=== PATIENT | female | born 1955 | race Caucasian/White ===

== ENCOUNTER 2017-01-23 15:35 | Emergency (ER) | payer OTHER ==
--- NOTE | 2017-01-23 16:41 | DIAGNOSTIC IMAGING REPORT ---
PROCEDURE: XR CHEST 2 VIEW INDICATION: COUGH TECHNIQUE: PA and lateral view. COMPARISON: Chest x-ray 08/27/2012. FINDINGS: Lungs are clear. Cardiovascular structures are normal. Bony thorax is unremarkable. No significant interval change. IMPRESSION: 1. Negative chest.
--- NOTE | 2017-01-23 17:51 | ED CLINICAL REPORT ---
Clinical Report - Physicians/Mid Levels [facility] [address] [place] [address] 01/23/2017 15:36 Patient: SPRING YEE Time Seen: 1555; initial patient contact. Arrived- By private vehicle. Historian- patient. HISTORY OF PRESENT ILLNESS Chief Complaint: COUGH, SORE THROAT, SINUS PAIN, FEVER and CHILLS. This started today and is still present. It is not gone now. It was gradual in onset. Not constant. The illness is described as moderate. The patient has had sputum production, a cough, a sore throat, nasal congestion and fever. She has had chills and muscle aches. (post tussive emesis). Additional history - No known contact with a sick individual. No recent travel. Similar symptoms previously: None. Recent medical care: Not recently seen/assessed. REVIEW OF SYSTEMS No skin rash. All systems otherwise negative, except as recorded above. PAST HISTORY See nurses notes. SOCIAL HISTORY Former smoker. Alcohol use. History of occasional drug use: marijuana. No recent travel. Is a local resident. ADDITIONAL NOTES The nursing notes have been reviewed. PHYSICAL EXAM Vital Signs: 01/23/2017 15:47 BP: 153/87. HR: 120. RR: 20. O2 saturation: 98%. Temp: 99.5 F. Pain level now: 0/10. Oxygen saturation normal. Appearance: Alert. No acute distress. Eyes: Pupils equal, round and reactive to light. Eyes normal inspection. ENT: Ears normal. Nose normal. Pharynx normal. Uvula midline. Neck: Normal inspection. Neck supple. No meningeal signs. CVS: Tachycardia. Normal heart rate and rhythm. Heart sounds normal. Pulses normal. Respiratory: No respiratory distress. Breath sounds normal. No rales, rhonchi, wheezes or stridor. Abdomen: Soft and nontender. No organomegaly. Skin: Skin warm and dry. Normal skin color. No rash. Normal skin turgor. Extremities: Extremities exhibit normal ROM. No lower extremity edema. LABS, X-RAYS, AND EKG Chest X-ray: (PROCEDURE: XR CHEST 2 VIEW INDICATION: COUGH TECHNIQUE: PA and lateral view. COMPARISON: Chest x-ray 08/27/2012. FINDINGS: Lungs are clear. Cardiovascular structures are normal. Bony thorax is unremarkable. No significant interval change. IMPRESSION: 1. Negative chest.). The X-rays were independently viewed by me, interpreted by the radiologist and discussed with the radiologist. PROGRESS AND PROCEDURES Course of Care: The patient is a 61 yo female with s/sx of URI vs pneumonia. Patient agreeable to treatment and plan. Patient non-toxic. CXR negative. Patient readied for discharge. HR noted to be elevated. Patient states she feels fine and does not want to stay to be monitored longer. States she would like to get OTC remedies to help with her symptoms. Discussed with patient her work up in the emergency department including diagnosis, home care, follow up, and return precautions. All questions answered. patient expressed understanding of these instructions and was agreeable to them. Disposition: Discharged. Condition: good. CLINICAL IMPRESSION 01/23/2017 15:47 BP: 153/87. HR: 120. RR: 20. O2 saturation: 98%. Temp: 99.5 F. Pain level now: 0/10. Hypertensive. Oxygen saturation normal. Acute viral bronchitis. INSTRUCTIONS Warnings: GENERAL WARNINGS: Return or contact your physician immediately if your condition worsens or changes unexpectedly, if not improving as expected, or if other problems arise. Specifically return if pain, vomiting, bleeding, breathing difficulty or fever. Your Current Medications: CONTINUE TAKING THE FOLLOWING MEDICATIONS: None*. Prescription Medications: Zofran ODT 4 mg: take 1 orally every 8 hours as needed for nausea and vomiting. Dispense ten (10). No refill. Substitution is permissible. Phenergan w/ Codeine 10mg / 6.25mg per 5 mL: take 1-2 teaspoons every 6 hours as needed for pain or cough. Dispense sixty (60) mL. No refill. Substitution is permissible. Follow-up: Return to the emergency department as needed. Follow up with your doctor in three days. Reason for referral: recheck today's concerns. Screening today revealed the patient's blood pressure to be in the hypertensive range. The patient should follow up with a primary care provider for blood pressure management. Understanding of the discharge instructions verbalized by patient. (Electronically signed by Aurelio Cabrales Dr. 07/04/2017 19:19)
--- NOTE | 2017-01-23 17:51 | ED NURSING NOTES ---
Clinical Report - Nurses [facility] [place] [address] 01/23/2017 15:36 Patient: SPRING YEE TRIAGE Acuity: LEVEL 3. Chief Complaint: COUGH. Alert. No acute distress. SEPSIS SCREEN: Sepsis Screen. Negative (no infection suspected/documented). --15:54 Catalina Marrufo R.N. 15:47 01/23/17. BP: 153/87. HR: 120. RR: 20. O2 saturation: 98%. Temp: 99.5 F (oral). Pain level now: 0/10. --15:54 Catalina Marrufo R.N. Weight: 69.8 kg stated. Height/Length: 65 inches Per Patient. BMI: 25.6. --15:51 Catalina Marrufo R.N. Medications None. --15:50 Catalina Marrufo R.N. Medication/allergy information source: the patient. --15:54 Catalina Marrufo R.N. Allergies No Known Drug Allergy. --15:50 Catalina Marrufo R.N. History Arrived by private vehicle. Historian: patient. Accompanied by spouse. Primary physician (Alex Thomas). Onset. (5 days ago). She has had chest congestion and chills. Reports muscle aches. 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 PAST MEDICAL HX: No known contact with a sick individual. SOCIAL HX: Former smoker, end date 2012. Regular alcohol use. History of heavy drug use: marijuana. FALL RISK ASSESSMENT: Fall risk assessment completed. No fall risk identified. NUTRITIONAL RISK ASSESSMENT: The nutritional risk assessment revealed no deficiencies. FUNCTIONAL ASSESSMENT: Functional assessment: no impairments noted. LEARNING NEEDS ASSESSMENT: The learning needs assessment revealed no barriers. SKIN INTEGRITY ASSESSMENT: Skin integrity risk assessment completed. No skin integrity risk identified. --15:54 Catalina Marrufo R.N. PROBLEMS: Viral Disease. Vomiting. Immunizations. URI. Diverticulitis. Costochondritis. Fibromyalgia. --15:50 Catalina Marrufo R.N. ADDITIONAL SURGERIES: Lumpectomy of breast. --15:51 Catalina Marrufo R.N. Assessment GENERAL / NEURO / PSYCH: Alert. Oriented X 4. Appears in no acute distress. Patient appears calm and cooperative. RESPIRATORY: Respirations not labored. CVS: Capillary refill less than 2 seconds. GI / : Abdomen soft. SKIN: Mucous membranes are pink. Skin is warm and dry. --15:54 Catalina Marrufo R.N. Interventions ID band on patient. To treatment room. --15:54 Catalina Marrufo R.N. PHYSICAL ASSESSMENT 15:54 01/23/17. Ambulatory to room. GENERAL / NEURO / PSYCH: Alert. Oriented X 4. Appears in no acute distress. HEENT: Pupils equal, round and reactive to light. Muffled voice. Mucous membranes are pink. RESPIRATORY: Respirations not labored. CVS: Capillary refill less than 2 seconds. SKIN: Skin is warm and dry. Normal skin turgor. --15:54 Catalina Marrufo R.N. NURSING PROGRESS NOTES 15:54 01/23/17. Patient gowned. Two patient identifiers checked. Call light placed in reach. Side rails up x 1. Bed placed in lowest position. Brakes of bed on. Patient ready for evaluation- chart flagged and ED physician notified. --15:54 Catalina Marrufo R.N. 16:18 01/23/2017 PHENERGAN-CODEINE (Promethazine-Codeine) PO 10 mL given. Allergies verified and confirmed 5 rights. --16:18 Catalina Marrufo R.N. 16:18 01/23/2017 Zofran ODT (Ondansetron) PO 4 mg given. Allergies verified and confirmed 5 rights. --16:18 Catalina Marrufo R.N. 16:23 01/23/17. Patient transported to radiology by stretcher with tech. --16:23 Catalina Marrufo R.N. 17:37 01/23/17. ( Pt ambulated to BR..). --17:37 Catalina Marrufo R.N. 17:37 01/23/17. The patient reports no complaints and she is calm and resting quietly. Overall patient status is improved- she states feels better. --17:37 Catalina Marrufo R.N. DISPOSITION / DISCHARGE Departure time: 18:00 Jan 23 2017. Condition at departure: improved and stable. No learning barriers present. Discharge instructions provided and reviewed with the patient. Patient verbalized understanding. Written instructions provided in Canadian. The patient was discharged by the physician. She was discharged home and accompanied by spouse. She left the Emergency Department ambulatory and via private vehicle. Spouse driving. --18:34 Catalina Marrufo R.N. 18:33 01/23/17. BP: 126/78. HR: 120. HR. ED physician notified. RR: 16. O2 saturation: 99% on room air. Temp: 100.2 F. ED physician notified. Pain level now: 11/01. --18:34 Catalina Marrufo R.N. Locked/Released at 01/23/2017 18:34 by Catalina Marrufo R.N.
--- NOTE | 2017-01-23 17:51 | ED ORDER SUMMARY ---
..... Patient: SPRING YEE OrderSheet [facility] VisitID: [id number] [place] [address] 61y, F Registration Date/Time: 01/23/2017 ORDER SHEET Weight: 69.8 kg (stated) Allergies: No Known Drug Allergy GENERAL ORDERS: Chest 2V Urgent (16:12 01/23/2017 Areli [place]) (Ack 16:20 OHernandez) (16:30 MWinterer R.N.) MEDICATION ORDERS: Zofran ODT PO 4 mg (NOW) (16:12 01/23/2017 Areli [place]) (Ack 16:13 MWinterer R.N.) (16:18 MWinterer R.N.) Phenergan-Codeine PO 10 mL (HIGH ALERT MEDICATION, NOW) (16:12 01/23/2017 Areli [place]) (Ack 16:13 MWinterer R.N.) (16:18 MWinterer R.N.) IV FLUIDS: ORDER SHEET NOTES: [Electronically signed by Catalina Marrufo R.N. (18:34 01/23/2017)] [Electronically signed by Aurelio Cabrales Dr. (19:19 01/25/2017)] [Electronically locked/signed by Catalina Marrufo R.N. (18:34 01/23/2017)]
--- NOTE | 2017-01-23 17:51 | ED ORDER SUMMARY ---
..... Patient: SPRING YEE OrderSheet [facility] VisitID: [id number] [place] [address] 61y, F Registration Date/Time: 01/23/2017 ORDER SHEET Weight: 69.8 kg (stated) Allergies: No Known Drug Allergy GENERAL ORDERS: Chest 2V Urgent (16:12 01/23/2017 Areli [place]) (Ack 16:20 OHernandez) (16:30 MWinterer R.N.) MEDICATION ORDERS: Zofran ODT PO 4 mg (NOW) (16:12 01/23/2017 Areli [place]) (Ack 16:13 MWinterer R.N.) (16:18 MWinterer R.N.) Phenergan-Codeine PO 10 mL (HIGH ALERT MEDICATION, NOW) (16:12 01/23/2017 Areli [place]) (Ack 16:13 MWinterer R.N.) (16:18 MWinterer R.N.) IV FLUIDS: ORDER SHEET NOTES: [Electronically signed by Catalina Marrufo R.N. (18:34 01/23/2017)] [Electronically signed by Aurelio Cabrales Dr. (19:19 01/25/2017)] [Electronically locked/signed by Catalina Marrufo R.N. (18:34 01/23/2017)]
--- NOTE | 2017-01-23 17:51 | ED NURSING NOTES ---
Clinical Report - Nurses [facility] [place] [address] 01/23/2017 15:36 Patient: SPRING YEE TRIAGE Acuity: LEVEL 3. Chief Complaint: COUGH. Alert. No acute distress. SEPSIS SCREEN: Sepsis Screen. Negative (no infection suspected/documented). --15:54 Catalina Marrufo R.N. 15:47 01/23/17. BP: 153/87. HR: 120. RR: 20. O2 saturation: 98%. Temp: 99.5 F (oral). Pain level now: 0/10. --15:54 Catalina Marrufo R.N. Weight: 69.8 kg stated. Height/Length: 65 inches Per Patient. BMI: 25.6. --15:51 Catalina Marrufo R.N. Medications None. --15:50 Catalina Marrufo R.N. Medication/allergy information source: the patient. --15:54 Catalina Marrufo R.N. Allergies No Known Drug Allergy. --15:50 Catalina Marrufo R.N. History Arrived by private vehicle. Historian: patient. Accompanied by spouse. Primary physician (Alex Thomas). Onset. (5 days ago). She has had chest congestion and chills. Reports muscle aches. 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 PAST MEDICAL HX: No known contact with a sick individual. SOCIAL HX: Former smoker, end date 2012. Regular alcohol use. History of heavy drug use: marijuana. FALL RISK ASSESSMENT: Fall risk assessment completed. No fall risk identified. NUTRITIONAL RISK ASSESSMENT: The nutritional risk assessment revealed no deficiencies. FUNCTIONAL ASSESSMENT: Functional assessment: no impairments noted. LEARNING NEEDS ASSESSMENT: The learning needs assessment revealed no barriers. SKIN INTEGRITY ASSESSMENT: Skin integrity risk assessment completed. No skin integrity risk identified. --15:54 Catalina Marrufo R.N. PROBLEMS: Viral Disease. Vomiting. Immunizations. URI. Diverticulitis. Costochondritis. Fibromyalgia. --15:50 Catalina Marrufo R.N. ADDITIONAL SURGERIES: Lumpectomy of breast. --15:51 Catalina Marrufo R.N. Assessment GENERAL / NEURO / PSYCH: Alert. Oriented X 4. Appears in no acute distress. Patient appears calm and cooperative. RESPIRATORY: Respirations not labored. CVS: Capillary refill less than 2 seconds. GI / : Abdomen soft. SKIN: Mucous membranes are pink. Skin is warm and dry. --15:54 Catalina Marrufo R.N. Interventions ID band on patient. To treatment room. --15:54 Catalina Marrufo R.N. PHYSICAL ASSESSMENT 15:54 01/23/17. Ambulatory to room. GENERAL / NEURO / PSYCH: Alert. Oriented X 4. Appears in no acute distress. HEENT: Pupils equal, round and reactive to light. Muffled voice. Mucous membranes are pink. RESPIRATORY: Respirations not labored. CVS: Capillary refill less than 2 seconds. SKIN: Skin is warm and dry. Normal skin turgor. --15:54 Catalina Marrufo R.N. NURSING PROGRESS NOTES 15:54 01/23/17. Patient gowned. Two patient identifiers checked. Call light placed in reach. Side rails up x 1. Bed placed in lowest position. Brakes of bed on. Patient ready for evaluation- chart flagged and ED physician notified. --15:54 Catalina Marrufo R.N. 16:18 01/23/2017 PHENERGAN-CODEINE (Promethazine-Codeine) PO 10 mL given. Allergies verified and confirmed 5 rights. --16:18 Catalina Marrufo R.N. 16:18 01/23/2017 Zofran ODT (Ondansetron) PO 4 mg given. Allergies verified and confirmed 5 rights. --16:18 Catalina Marrufo R.N. 16:23 01/23/17. Patient transported to radiology by stretcher with tech. --16:23 Catalina Marrufo R.N. 17:37 01/23/17. ( Pt ambulated to BR..). --17:37 Catalina Marrufo R.N. 17:37 01/23/17. The patient reports no complaints and she is calm and resting quietly. Overall patient status is improved- she states feels better. --17:37 Catalina Marrufo R.N. DISPOSITION / DISCHARGE Departure time: 18:00 Jan 23 2017. Condition at departure: improved and stable. No learning barriers present. Discharge instructions provided and reviewed with the patient. Patient verbalized understanding. Written instructions provided in [place]ian. The patient was discharged by the physician. She was discharged home and accompanied by spouse. She left the Emergency Department ambulatory and via private vehicle. Spouse driving. --18:34 Catalina Marrufo R.N. 18:33 01/23/17. BP: 126/78. HR: 120. HR. ED physician notified. RR: 16. O2 saturation: 99% on room air. Temp: 100.2 F. ED physician notified. Pain level now: 11/01. --18:34 Catalina Marrufo R.N. Locked/Released at 01/23/2017 18:34 by Catalina Marrufo R.N.
--- NOTE | 2017-01-25 19:19 | ED DISCHARGE INSTRUCTIONS ---
Patient: SPRING YEE General Instructions [facility] VisitID: [id number] [place] [address] 61y, F Registration Date/Time: 01/23/2017 01/23/2017 15:47 BP: 153/87. HR: 120. RR: 20. O2 saturation: 98%. Temp: 99.5 F. Pain level now: 0/10. Hypertensive. Oxygen saturation normal. Acute viral bronchitis. INSTRUCTIONS Warnings: GENERAL WARNINGS: Return or contact your physician immediately if your condition worsens or changes unexpectedly, if not improving as expected, or if other problems arise. Specifically return if pain, vomiting, bleeding, breathing difficulty or fever. Your Current Medications: CONTINUE TAKING THE FOLLOWING MEDICATIONS: None*. Prescription Medications: Zofran ODT 4 mg: take 1 orally every 8 hours as needed for nausea and vomiting. Dispense ten (10). No refill. Substitution is permissible. Phenergan w/ Codeine 10mg / 6.25mg per 5 mL: take 1-2 teaspoons every 6 hours as needed for pain or cough. Dispense sixty (60) mL. No refill. Substitution is permissible. Follow-up: Return to the emergency department as needed. Follow up with your doctor in three days. Reason for referral: recheck today's concerns. Screening today revealed the patient's blood pressure to be in the hypertensive range. The patient should follow up with a primary care provider for blood pressure management. Understanding of the discharge instructions verbalized by patient. ADDITIONAL INFORMATION Bronchitis, Viral (Adult: No Abx) You have a viral bronchitis. This illness is contagious during the first few days and is spread through the air by coughing and sneezing, or by direct contact (touching the sick person and then touching your own eyes, nose, or mouth). Most viral illnesses resolve within 10-14 days with rest and simple home remedies, although they may sometimes last for several weeks. Antibiotics will not kill a virus and are generally not prescribed for this condition. Home Care: If symptoms are severe, rest at home for the first 2-3 days. When resuming activity, don't let yourself become overly tired. Do not smoke and avoid the smoke of others. You may use acetaminophen (Tylenol) or ibuprofen (Motrin, Advil) to control fever or pain, unless another pain medicine was prescribed. [NOTE: If you have chronic liver or kidney disease or ever had a stomach ulcer or GI bleeding, talk with your doctor before using these medicines.] (Aspirin should never be used in anyone under 18 years of age who is ill with a fever. It may cause severe liver damage.) Your appetite may be poor so a light diet is fine. Avoid dehydration by drinking 6-8 glasses of fluids per day (water, sport drinks such as Gatorade, juices, tea, soup, etc.). Extra fluids will help loosen secretions in the nose and lung. Vzxh-xsi-lfistpu cold medicines will not shorten the length of the illness, but may be helpful for cough (Robitussin DM), sore throat (Chloraseptic lozenges or spray), nasal and sinus congestion (Actifed or Sudafed). [NOTE: Do not use decongestants if you have high blood pressure.] Follow Up with your doctor or as directed by our staff if you are not improving over the next week. NOTE: If you are age 65 or older, or if you have chronic asthma or COPD, we recommend a PNEUMOCOCCAL VACCINATION every five years and a yearly INFLUENZAVACCINATION (FLU-SHOT) every . Ask your doctor about this. If you had an X-ray, a radiologist will review it. You will be notified of any new findings that may affect your care.] Get Prompt Medical Attention if any of the following occur: Fever over 100.4F (38.0C) for more than three days Trouble breathing, wheezing or pain with breathing Coughing up blood or increased amounts of colored sputum Weakness, drowsiness, headache, facial pain, ear pain or a stiff neck Ondansetron Oral disintegrating tablet What is this medicine? ONDANSETRON (on MELLO se [place]) is used to treat nausea and vomiting caused by chemotherapy. It is also used to prevent or treat nausea and vomiting after surgery. How should I use this medicine? These tablets are made to dissolve in the mouth. Do not try to push the tablet through the foil backing. With dry hands, peel away the foil backing and gently remove the tablet. Place the tablet in the mouth and allow it to dissolve, then swallow. While you may take these tablets with water, it is not necessary to do so. Talk to your brush holder inspector regarding the use of this medicine in children. Special care may be needed. What side effects may I notice from receiving this medicine? Side effects that you should report to your doctor or health pediatric critical care nurse as soon as possible: allergic reactions like skin rash, itching or hives, swelling of the face, lips, or tongue breathing problems dizziness fast or irregular heartbeat feeling faint or lightheaded, falls fever and chills swelling of the hands and feet tightness in the chest Side effects that usually do not require medical attention (report to your doctor or health pediatric critical care nurse if they continue or are bothersome): constipation or diarrhea headache What may interact with this medicine? Do not take this medicine with any of the following medications: -apomorphine -cisapride -dofetilide -dronedarone -pimozide -thioridazine -ziprasidone This medicine may also interact with the following medications: -carbamazepine -phenytoin -rifampicin -tramadol -other medicines that prolong the QT interval (cause an abnormal heart rhythm) What if I miss a dose? If you miss a dose, take it as soon as you can. If it is almost time for your next dose, take only that dose. Do not take double or extra doses. Where should I keep my medicine? Keep out of the reach of children. Store between 2 and 30 degrees C (36 and 86 degrees F). Throw away any unused medicine after the expiration date. What should I tell my health care provider before I take this medicine? They need to know if you have any of these conditions: heart disease history of irregular heartbeat liver disease low levels of magnesium or potassium in the blood an unusual or allergic reaction to ondansetron, granisetron, other medicines, foods, dyes, or preservatives or trying to get breast-feeding What should I watch for while using this medicine? Check with your doctor or health pediatric critical care nurse as soon as you can if you have any sign of an allergic reaction. You have been given the following additional information: Bronchitis, No Antibiotic (Adult) Ondansetron Oral disintegrating tablet (Electronically signed by Aurelio Cabrales Dr. 01/25/2017 19:19)
--- NOTE | 2017-01-25 19:19 | ED MAR SUMMARY ---
..... Medication Administration Record [facility] [address] [place] [address] Patient: SPRING YEE Visit ID: [id number] 61y, F Weight: 69.8 kg Height/Length: 65 in BMI: 25.6 ALLERGIES: No Known Drug Allergy Given 16:01/23/2017 Catalina Marrufo, R.N. Medication Administered: ZOFRAN ODT [PO] (ONDANSETRON), Dose: 4 mg PO. Medication Ordered: Zofran ODT PO 4 mg (NOW). Given 16:18 01/23/2017 Catalina Marrufo, R.N. Medication Administered: PHENERGAN-CODEINE [PO] (PROMETHAZINE-CODEINE), Dose: 10 mL PO. Medication Ordered: Phenergan-Codeine PO 10 mL (HIGH ALERT MEDICATION, NOW).
--- NOTE | 2017-01-25 19:19 | ED MAR SUMMARY ---
..... Medication Administration Record [facility] [address] [place] [address] Patient: SPRING YEE Visit ID: [id number] 61y, F Weight: 69.8 kg Height/Length: 65 in BMI: 25.6 ALLERGIES: No Known Drug Allergy Given 16:01/23/2017 Catalina Marrufo, R.N. Medication Administered: ZOFRAN ODT [PO] (ONDANSETRON), Dose: 4 mg PO. Medication Ordered: Zofran ODT PO 4 mg (NOW). Given 16:18 01/23/2017 Catalina Marrufo, R.N. Medication Administered: PHENERGAN-CODEINE [PO] (PROMETHAZINE-CODEINE), Dose: 10 mL PO. Medication Ordered: Phenergan-Codeine PO 10 mL (HIGH ALERT MEDICATION, NOW).
--- NOTE | 2017-01-25 19:19 | ED MED RECONCILIATION SUMMARY ---
Patient: SPRING YEE Medication Reconciliation Report [facility] VisitID: [id number] [address] [place] [address] 61y, F Registration Date/Time: 01/23/2017 Weight: 69.8 kg Height/Length: 65 in. BMI: 25.6 ALLERGIES: No Known Drug Allergy The patient's Home Medications are listed below: NONE. The source(s) of the original Home Medication information: patient The following Medications were given to the patient in the Emergency Department: PHENERGAN-CODEINE [PO] PO 10 mL, administered: 01/23/2017 4:18:00 PM Zofran ODT [PO] PO 4 mg, administered: 01/23/2017 4:18:00 PM The following Medications were prescribed to the patient: Zofran ODT 4 mg: take 1 orally every 8 hours as needed for nausea and vomiting. Dispense ten (10). No refill. Substitution is permissible. -- Aurelio Cabrales Dr. Phenergan w/ Codeine 10mg / 6.25mg per 5 mL: take 1-2 teaspoons every 6 hours as needed for pain or cough. Dispense sixty (60) mL. No refill. Substitution is permissible. -- Aurelio Cabrales Dr.
--- NOTE | 2017-01-25 19:19 | ED DISCHARGE INSTRUCTIONS ---
Patient: SPRING YEE General Instructions [facility] VisitID: [id number] [place] [address] 61y, F Registration Date/Time: 01/23/2017 01/23/2017 15:47 BP: 153/87. HR: 120. RR: 20. O2 saturation: 98%. Temp: 99.5 F. Pain level now: 0/10. Hypertensive. Oxygen saturation normal. Acute viral bronchitis. INSTRUCTIONS Warnings: GENERAL WARNINGS: Return or contact your physician immediately if your condition worsens or changes unexpectedly, if not improving as expected, or if other problems arise. Specifically return if pain, vomiting, bleeding, breathing difficulty or fever. Your Current Medications: CONTINUE TAKING THE FOLLOWING MEDICATIONS: None*. Prescription Medications: Zofran ODT 4 mg: take 1 orally every 8 hours as needed for nausea and vomiting. Dispense ten (10). No refill. Substitution is permissible. Phenergan w/ Codeine 10mg / 6.25mg per 5 mL: take 1-2 teaspoons every 6 hours as needed for pain or cough. Dispense sixty (60) mL. No refill. Substitution is permissible. Follow-up: Return to the emergency department as needed. Follow up with your doctor in three days. Reason for referral: recheck today's concerns. Screening today revealed the patient's blood pressure to be in the hypertensive range. The patient should follow up with a primary care provider for blood pressure management. Understanding of the discharge instructions verbalized by patient. ADDITIONAL INFORMATION Bronchitis, Viral (Adult: No Abx) You have a viral bronchitis. This illness is contagious during the first few days and is spread through the air by coughing and sneezing, or by direct contact (touching the sick person and then touching your own eyes, nose, or mouth). Most viral illnesses resolve within 10-14 days with rest and simple home remedies, although they may sometimes last for several weeks. Antibiotics will not kill a virus and are generally not prescribed for this condition. Home Care: If symptoms are severe, rest at home for the first 2-3 days. When resuming activity, don't let yourself become overly tired. Do not smoke and avoid the smoke of others. You may use acetaminophen (Tylenol) or ibuprofen (Motrin, Advil) to control fever or pain, unless another pain medicine was prescribed. [NOTE: If you have chronic liver or kidney disease or ever had a stomach ulcer or GI bleeding, talk with your doctor before using these medicines.] (Aspirin should never be used in anyone under 18 years of age who is ill with a fever. It may cause severe liver damage.) Your appetite may be poor so a light diet is fine. Avoid dehydration by drinking 6-8 glasses of fluids per day (water, sport drinks such as Gatorade, juices, tea, soup, etc.). Extra fluids will help loosen secretions in the nose and lung. [id number] cold medicines will not shorten the length of the illness, but may be helpful for cough (Robitussin DM), sore throat (Chloraseptic lozenges or spray), nasal and sinus congestion (Actifed or Sudafed). [NOTE: Do not use decongestants if you have high blood pressure.] Follow Up with your doctor or as directed by our staff if you are not improving over the next week. NOTE: If you are age 65 or older, or if you have chronic asthma or COPD, we recommend a PNEUMOCOCCAL VACCINATION every five years and a yearly INFLUENZAVACCINATION (FLU-SHOT) every . Ask your doctor about this. If you had an X-ray, a radiologist will review it. You will be notified of any new findings that may affect your care.] Get Prompt Medical Attention if any of the following occur: Fever over 100.4F (38.0C) for more than three days Trouble breathing, wheezing or pain with breathing Coughing up blood or increased amounts of colored sputum Weakness, drowsiness, headache, facial pain, ear pain or a stiff neck Ondansetron Oral disintegrating tablet What is this medicine? ONDANSETRON (on MELLO se [place]) is used to treat nausea and vomiting caused by chemotherapy. It is also used to prevent or treat nausea and vomiting after surgery. How should I use this medicine? These tablets are made to dissolve in the mouth. Do not try to push the tablet through the foil backing. With dry hands, peel away the foil backing and gently remove the tablet. Place the tablet in the mouth and allow it to dissolve, then swallow. While you may take these tablets with water, it is not necessary to do so. Talk to your records analysis manager regarding the use of this medicine in children. Special care may be needed. What side effects may I notice from receiving this medicine? Side effects that you should report to your doctor or health health care specialist as soon as possible: allergic reactions like skin rash, itching or hives, swelling of the face, lips, or tongue breathing problems dizziness fast or irregular heartbeat feeling faint or lightheaded, falls fever and chills swelling of the hands and feet tightness in the chest Side effects that usually do not require medical attention (report to your doctor or health health care specialist if they continue or are bothersome): constipation or diarrhea headache What may interact with this medicine? Do not take this medicine with any of the following medications: -apomorphine -cisapride -dofetilide -dronedarone -pimozide -thioridazine -ziprasidone This medicine may also interact with the following medications: -carbamazepine -phenytoin -rifampicin -tramadol -other medicines that prolong the QT interval (cause an abnormal heart rhythm) What if I miss a dose? If you miss a dose, take it as soon as you can. If it is almost time for your next dose, take only that dose. Do not take double or extra doses. Where should I keep my medicine? Keep out of the reach of children. Store between 2 and 30 degrees C (36 and 86 degrees F). Throw away any unused medicine after the expiration date. What should I tell my health care provider before I take this medicine? They need to know if you have any of these conditions: heart disease history of irregular heartbeat liver disease low levels of magnesium or potassium in the blood an unusual or allergic reaction to ondansetron, granisetron, other medicines, foods, dyes, or preservatives or trying to get breast-feeding What should I watch for while using this medicine? Check with your doctor or health health care specialist as soon as you can if you have any sign of an allergic reaction. You have been given the following additional information: Bronchitis, No Antibiotic (Adult) Ondansetron Oral disintegrating tablet (Electronically signed by Aurelio Cabrales Dr. 01/25/2017 19:19)
--- NOTE | 2017-01-25 19:19 | ED MED RECONCILIATION SUMMARY ---
Patient: SPRING YEE Medication Reconciliation Report [facility] VisitID: [id number] [address] [place] [address] 61y, F Registration Date/Time: 01/23/2017 Weight: 69.8 kg Height/Length: 65 in. BMI: 25.6 ALLERGIES: No Known Drug Allergy The patient's Home Medications are listed below: NONE. The source(s) of the original Home Medication information: patient The following Medications were given to the patient in the Emergency Department: PHENERGAN-CODEINE [PO] PO 10 mL, administered: 01/23/2017 4:18:00 PM Zofran ODT [PO] PO 4 mg, administered: 01/23/2017 4:18:00 PM The following Medications were prescribed to the patient: Zofran ODT 4 mg: take 1 orally every 8 hours as needed for nausea and vomiting. Dispense ten (10). No refill. Substitution is permissible. -- Aurelio Cabrales Dr. Phenergan w/ Codeine 10mg / 6.25mg per 5 mL: take 1-2 teaspoons every 6 hours as needed for pain or cough. Dispense sixty (60) mL. No refill. Substitution is permissible. -- Aurelio Cabrales Dr.
== END 2017-01-23 18:00 | disposition home or self-care (01) ==
LOC: ED SRH 15:35
DX: J20.8 Acute bronchitis due to other specified organisms (principal); Z87.891 Personal history of nicotine dependence